=== PATIENT | female | born 1960 | race African-American/Black ===

== ENCOUNTER 2016-08-27 03:01 | Emergency (ER) | payer MEDICARE, MEDICAID ==
[~2016-08-27] VITALS: Ht 149.9 cm; Wt 127.0 kg
[2016-08-27 04:22] LABS: Urine Bilirubin Negative (Negative); Urine Blood Negative /uL (Negative); Urine Color Yellow (Yellow); Urine Glucose Normal (Normal); Urine Ketone Negative (Negative); Urine Mucus FEW (None Seen); Urine Nitrite Negative (Negative); Urine RBC 7 /hpf (0 - 4); Urine Squamous Epithelial Cell FEW /hpf (<5); Urine Urobilinogen Normal (Negative); Urine pH 5.5 (5.0-8.0)
[2016-08-27 04:43] LABS: Basophils # (auto) 0 uL; Basophils % (auto) 0.2 % (0.0-2.0); CONDITION Y; Eosinophils # (auto) 0.1 uL; Eosinophils % (auto) 0.9 % (0.0-7.0); Hematocrit 38.2 % (36.0-46.0); Hemoglobin 12.5 g/dL (12.2-16.2); Lymphocytes # (auto) 1.2 uL; Lymphocytes % (auto) 14.1 % (10.0-50.0); Mean Corpuscular Hemoglobin 27.3 pg (28.0-32.0); Mean Corpuscular Hgb Conc. 32.7 g/dL (32.0-36.0); Mean Corpuscular Volume 83.7 fL (80.0-100.0); Mean Platelet Volume 8.5 fL (7.4-10.4); Monocytes # (auto) 0.7 uL; Neutrophils # (auto) 6.7 uL; Neutrophils % (auto) 76.8 % (37.0-80.0); Platelet Count (auto) 297 10^3/uL (140-450); Red Cell Distribution Width 18.5 % (11.6-16.0); White Blood Cell 8.7 10^3/uL (4.4-10.8)
[2016-08-27 04:59] LABS: Chloride 107 mmol/L (98-107); Potassium 4.1 mmol/L (3.5-5.1); Sodium 142 mmol/L (136-145)
[2016-08-27 05:03] LABS: Albumin 3.3 g/dL (3.4-5.0); Amylase 54 U/L (25-115); Anion Gap 8 (5-15); Aspartate Aminotransferase 12 U/L (15-37); BUN/Creatinine Ratio 18.2; Blood Urea Nitrogen 14 mg/dL (7-18); Calcium 8.3 mg/dL (8.5-10.1); Carbon Dioxide 27 mmol/L (21-32); GFR African American 100 mL/min; GFR Non-African American 83 mL/min; Glucose 93 mg/dL (74-106); Magnesium 2.4 mg/dL (1.6-2.6)
[2016-08-27 05:08] LABS: Alkaline Phosphatase 90 U/L (45-117); Bilirubin, Total 0.2 mg/dL (0.2-1.0); Total Protein 7.6 g/dL (6.4-8.2)
[2016-08-27] MEDS ORDERED: cefTRIAXone 1GM/50ML D5W 50 ML IV ONE (07:15)
[2016-08-27] MEDS ORDERED: KETOROLAC TROMETH 30 MG/ML 1ML VIAL IV ONE (07:15)
[2016-08-27] MEDS ORDERED: SODIUM CHLORIDE 0.9% 1,000 ML IV ONE (07:15)
[2016-08-27 09:01] VITALS: BP 154/85
== END 2016-08-27 10:02 | disposition home or self-care (01) ==
LOC: ER 03:16
DX: N39.0 Urinary tract infection, site not specified (principal); D25.9 Leiomyoma of uterus, unspecified; J44.9 Chronic obstructive pulmonary disease, unspecified; R31.9 Hematuria, unspecified; Z90.49 Acquired absence of other specified parts of digestive tract
CPT/HCPCS: 36415; 74176; 80053; 81001; 82150; 83690; 83735; 84484; 84702; 85025; 96365; 96375; 99285; J0696; J1885

== ENCOUNTER → 2018-05-22 | Outpatient (CLI) | payer MEDICAID, MEDICARE ==
[~2018-05-22] MED LIST: ALBUTEROL SULF 2.5 MG/0.5ML(0.5%) NEB SOLN ONE
== END | disposition home or self-care (01) ==
LOC: RT 08:36
PROVIDERS: ATTEND Internal Medicine Pulmonary Disease
DX: J45.909 Unspecified asthma, uncomplicated (principal); J44.9 Chronic obstructive pulmonary disease, unspecified
CPT/HCPCS: 94060; J7611

== ENCOUNTER 2019-09-06 10:52 | Emergency (ER) | payer SELFPAY ==
[~2019-09-06] VITALS: Ht 152.4 cm; Wt 136.1 kg
[2019-09-06 12:27] LABS: Urine Bacteria FEW /hpf (None Seen); Urine Blood Negative /uL (Negative); Urine Mucus FEW (None Seen); Urine WBC 14 /hpf (0 - 5)
[2019-09-06 13:20] LABS: Basophils # (auto) 0 10 ^3/uL (0-0.2); Basophils % (auto) 0.5 % (0.0-2.0); Eosinophils # (auto) 0.1 10 ^3/uL (0-0.8); Eosinophils % (auto) 1.2 % (0.0-7.0); Hematocrit 42.2 % (36.0-46.0); Hemoglobin 13.7 g/dL (12.2-16.2); Lymphocytes # (auto) 1.2 10 ^3/uL (0.4-5.4); Lymphocytes % (auto) 17.7 % (10.0-50.0); Mean Corpuscular Hemoglobin 28.5 pg (28.0-32.0); Mean Corpuscular Hgb Conc. 32.6 g/dL (32.0-36.0); Mean Corpuscular Volume 87.6 fL (80.0-100.0); Monocytes # (auto) 0.5 10 ^3/uL (0-1.3); Monocytes % (auto) 7.9 % (0.0-12.0); Neutrophils # (auto) 4.9 10 ^3/uL (1.6-8.6); Neutrophils % (auto) 72.7 % (37.0-80.0); Nucleated Red Blood Cells % 0.1 %; Platelet Count (auto) 225 10^3/uL (140-450); Red Blood Cells 4.82 10^6/uL (4.0-5.20); Red Cell Distribution Width 15.5 % (11.8-14.3); White Blood Cell 6.8 10^3/uL (4.4-10.8)
[2019-09-06 13:45] LABS: Albumin 3.3 g/dL (3.4-5.0); BUN/Creatinine Ratio 13.9; Bilirubin, Total 0.3 mg/dL (0.2-1.0); Calcium 8.9 mg/dL (8.5-10.1); Total Protein 7.7 g/dL (6.4-8.2)
[2019-09-06 14:17] VITALS: BP 163/84
== END 2019-09-06 14:21 | disposition home or self-care (01) ==
LOC: ER 10:52
DX: N39.0 Urinary tract infection, site not specified (principal); K29.00 Acute gastritis without bleeding; Z87.891 Personal history of nicotine dependence
CPT/HCPCS: 36415; 76705; 80053; 81001; 83690; 83735; 85025

== ENCOUNTER 2020-02-02 17:10 | Emergency (ER) | payer SELFPAY ==
[~2020-02-02] VITALS: Ht 149.9 cm; Wt 131.5 kg
[2020-02-02 17:34] VITALS: BP 138/78
== END 2020-02-02 21:40 | disposition home or self-care (01) ==
LOC: ER 17:10
DX: U07.1 COVID-19 (principal); J45.21 Mild intermittent asthma with (acute) exacerbation
CPT/HCPCS: 36415; 71045; 87426

== ENCOUNTER 2023-11-13 23:48 | Emergency (ER) | payer MEDICAID, OTHER ==
[~2023-11-13] VITALS: Ht 149.9 cm; Wt 133.1 kg
[2023-11-14 00:26] VITALS: TEMP 98
[2023-11-14 04:01] VITALS: BP 138/87; PULSE 78; RESP 20; O2SAT 98
== END 2023-11-14 03:58 | disposition home or self-care (01) ==
LOC: ER 23:48
DX: H11.32 Conjunctival hemorrhage, left eye (principal); J44.9 Chronic obstructive pulmonary disease, unspecified; F17.210 Nicotine dependence, cigarettes, uncomplicated; E66.01 Morbid (severe) obesity due to excess calories; Z68.43 Body mass index [BMI] 50.0-59.9, adult; Z90.89 Acquired absence of other organs; Z98.890 Other specified postprocedural states

== ENCOUNTER 2024-05-12 18:04 | Inpatient (IN) | payer MEDICARE, MEDICAID ==
[~2024-05-12] VITALS: Ht 149.9 cm; Wt 128.0 kg
--- NOTE | 2024-05-12 18:17 | ECG ---
[facility] Test Date: 2024-05-12 Test Time: 18:06:49 Pat Name: ROS FLANAGAN Department: ED Room: 0206 Gender: F Camp Coordinator: georgina : 1960 Requested By: EBONIE LAMA Order Number: [id number] Reading MD: Clem Aviles Measurements Intervals [place] Rate: 85 P: 39 [place]: 178 QRS: 56 QRSD: 95 T: 29 QT: 359 QTc: 427 Interpretive Statements Sinus rhythm Electronically Signed On 05-14-2024 22:10:20 PDT by Clem Aviles Please click the below link to view image of tracing.
--- NOTE | 2024-05-12 19:10 | ED.PDOC ---
History of Present Illness HPI Comments 64 y/o morbidly obese F, with a Hx of asthma, COPD, and HTN, is BIBA for c/o shortness of breath, today. Per EMS report, patient reports sudden onset of difficulty breathing after ambulating outside of [facility] at 1515 after being seen for a persisting cough and flu-like symptoms that has been ongoing for a few days prior. Staff at said facility proceeded to give the patient 2.5mg of Albuterol, improving the patient's initial endorsed SpO2 in the high 80's to the mid-90's range. Upon arrival on scene, patient was noted by EMS to have been found with diminished breathe sounds in her right lung. En route, patient received an additional 2.5mg Albuterol and Atrovent, with improvement. Upon arrival to ED, patient states on feeling better and denies having any symptoms at this time. Chief Complaint: Shortness of Breath Time Seen by MD: 18:30 Primary Care Provider: UNKNOWN Reviewed Notes: Nurses Notes, Academic Program Specialist Notes, Medications, Allergies Allergies: Coded Allergies: Aspirin (Verified Allergy, Severe, 05/12/24) Information Source: Patient, Emergency Med Personnel Mode of Arrival: EMS Past Medical History PAST MEDICAL HISTORY: Asthma, COPD, HTN Past Medical History (Other): morbid obesity Surgical History: , Tonsillectomy AIR ANALYSIS TECHNICIAN History: No Pertinent AIR ANALYSIS TECHNICIAN History Family History Family History: Unknown Social History Smoker: Quit Greater Than 1 Year, Cigarettes Alcohol: Rarely Drugs: Denies Drug Use Lives In: Home All Other Systems: Reviewed and Negative (Comprehensive systems review obtained and negative except for what is stated in the HPI.) Physical Exam General Appearance: No Apparent Distress, Obese HEENT: Normal ENT Inspection, Pharynx Normal, TMs Normal Neck: Full Range of Motion, Non-Tender, Normal, Normal Inspection Respiratory: Chest Non-Tender, No Accessory Muscle Use, No Respiratory Distress, Rhonchi (rigth lung field ), Other (coarse breath sounds ) Cardiovascular: No Edema, No JVD, No Murmur, No Gallop, Normal Peripheral Pulses, Regular Rate/Rhythm Breast Exam: Deferred Gastrointestinal: No Organomegaly, Non Tender, No Pulsatile Mass, Normal Bowel Sounds, Soft Genitalia: Deferred Pelvic: Deferred Rectal: Deferred Extremities: No calf tenderness, Normal capillary refill, Normal inspection, Normal range of motion, Non-tender, No pedal edema Musculoskeletal : Apperance: Normal Neurologic: Alert, supervisor pre wave II-XII nml as Tested, No Motor Deficits, Normal Affect, Normal Mood, No Sensory Deficits Cerebellar Function: Normal Reflexes: Normal Skin: Dry, Normal Color, Warm Lymphatic: No Adenopathy Was a procedure done? Was a procedure done?: No EKG EKG : Pulse Rate (adult): 85 [place]wey: Normal Cardiac Rhythm: NSR Block: None Hypertrophy: None ST: Normal Differential Dx Considerations may include: asthma exacerbation, URI, viral syndrome, chf, angina equivalent, ptx, lung mass, anxiety, reactive airway disease X-Ray, Labs, Meds, VS Vital Signs Date Time Temp Pulse Resp B/P (MAP) Pulse Ox O2 Delivery O2 Flow Rate FiO2 05/12/24 20:00 87 05/12/24 19:51 98.3 88 14 142/69 (93) 98 98.3 05/12/24 19:51 88 14 98 Room Air* 0 21 05/12/24 19:10 85 05/12/24 18:37 Room Air* 0 21 05/12/24 18:37 98.4 89 19 127/54 (78) 95 98.4 05/12/24 18:30 90 05/12/24 18:08 99.3 96 22 106/93 (97) 96 99.3 Lab Test 05/12/24 20:13 Range/Units White Blood Count 9.7 4.4-10.8 10^3/uL Red Blood Count 4.75 4.0-5.20 10^6/uL Hemoglobin 14.1 12.2-16.2 g/dL Hematocrit 41.6 36.0-46.0 % Mean Corpuscular Volume 87.5 80.0-100.0 fL Mean Corpuscular Hemoglobin 29.7 28.0-32.0 pg Mean Corpuscular Hemoglobin Concent 33.9 32.0-36.0 g/dL Red Cell Distribution Width 15.5 H 11.8-14.3 % Platelet Count 212 140-450 10^3/uL Mean Platelet Volume 8.5 6.9-10.8 fL Neutrophils (%) (Auto) 83.8 H 37.0-80.0 % Lymphocytes (%) (Auto) 5.3 L 10.0-50.0 % Monocytes (%) (Auto) 10.0 0.0-12.0 % Eosinophils (%) (Auto) 0.1 0.0-7.0 % Basophils (%) (Auto) 0.8 0.0-2.0 % Neutrophils # (Auto) 8.2 1.6-8.6 10 ^3/uL Lymphocytes # (Auto) 0.5 0.4-5.4 10 ^3/uL Monocytes # (Auto) 1.0 0-1.3 10 ^3/uL Eosinophils # (Auto) 0 0-0.8 10 ^3/uL Basophils # (Auto) 0.1 0-0.2 10 ^3/uL Nucleated Red Blood Cells 0.0 % Sodium Level 136 136-145 mmol/L Potassium Level 4.2 3.5-5.1 mmol/L Chloride Level 104 98-107 mmol/L Carbon Dioxide Level 26 20-31 mmol/L Anion Gap 6 5-15 Blood Urea Nitrogen 10 9-23 mg/dL Creatinine 1.19 H 0.550-1.02 mg/dL Glomerular Filtration Rate Calc 52 >90 mL/min BUN/Creatinine Ratio 8.4 L 10.0-20.0 Serum Glucose 114 H 74-106 mg/dL Calcium Level 9.4 8.7-10.4 mg/dL Troponin I High Sensitivity 5 </=34 ng/L B-Type Natriuretic Peptide 25.50 0-100 pg/mL [place] [id number] Ph: [phone] DIAGNOSTIC IMAGING Diagnostic Imaging Report : [id number] Signed PATIENT: ROS FLANAGAN ACCT: [id number] UNIT: [id number] : 1960 LOC: ER ROOM / BED: / AGE / SEX: 64 / F ADM STATUS: REG ER SERVICE 31 ORDERING PHYSICIAN: EBONIE LAMA MD PROCEDURE(s): CXRP - CHEST PORTABLE REASON: sob ORDER NUMBER(s): [id number], ACCESSION NUMBER(s): [id number] CHEST RADIOGRAPH Indication: sob Technique: Single frontal view of the chest was obtained Comparison: CHEST XRAY 1 VIEW on DOS: 02/02/20 FINDINGS: Lines and Tubes: None Lungs: Ill-defined bilateral pulmonary infiltrates. Pleura: No effusion. No pneumothorax. Cardiomediastinal contours: Mildly enlarged Bones: No acute osseous abnormality. IMPRESSION: 1. Findings may represent congestive failure or pneumonia. Airspace disease appears worse in the lung bases. This may be partially due to patient's soft tissues over the area. 2. ATED BY: LINDSAY CALDERON Jr., DO DICTATED DATE/TIME: 05/12/241932 SIGNED BY: LINDSAY CALDERON Jr., SIGNED DATE/TIME: 05/12/241932 CC: denies any labs to be done but agrees to receive an x-ray Time of 1ST Reevaluation: 19:00 Reevaluation 1ST: Unchanged Time of 2ND Reevaluation: 21:06 Reevaluation 2ND: Improved Patient Education/Counseling: Diagnosis, Treatment Family Education/Counseling: No Family Present Additional Information Previous medical encounters reviewed: November 13, 2023 encounter for subconjunctival hemorrhage The following tests were ordered, and results were reviewed by me: CXR, EKG Additional Information was gathered from interviewing the following independent historians: EMS I reviewed and agreed with the following test results read by other providers: CXR I discussed treatment and results with medical personnel and: Patient pt was tachycardic, tachpneic on arrival. she was sent from by EMT for concerns of impending respiratory failure. she is much improved. the workup shows she has new onset chf. she will be admitted for further evaluation and treatments Departure 1 Departure Time of Disposition: 21:05 Impression: Primary Impression: CHF (congestive heart failure) Qualified Codes: I50.21 - Acute systolic (congestive) heart failure Additional Impression: Dyspnea Qualified Codes: R06.00 - Dyspnea, unspecified Disposition: ADMITTED INPATIENT Admit to: Tele Condition: Serious Critical Care Note Critical Care Time?: Yes (55 min-critical care time only) Critical care comment: Due to concerns for patients condition deteriorating, the care required my highest level of attention and readiness to intervene. I assessed the patient, reviewed the medical records, ordered the appropriate tests and treatments, then reassessed for results and responsiveness. I communicated with medical personnel and consultants and formulated a plan of care. Total critical care time excludes any procedures Stability Stability form required: No Heart Score Heart Score: Heart Score Response (Comments) Value History Slightly Suspicious 0 EKG Normal 0 Age >65 2 Risk Factors 1 or 2 risk factors 1 Troponin Normal limit 0 Total 3 I personally scribed for EBONIE LAMA MD ([email or web address]) on 05/12/24 at 19:10. Electronically submitted by Espinoza Martin ([email or web address]). I personally scribed for EBONIE LAMA MD ([email or web address]) on 05/12/24 at 19:51. Electronically submitted by Espinoza Martin ([email or web address]). EBONIE LAMA MD May 12, 2024 19:10
--- NOTE | 2024-05-12 19:35 | DVH ---
CHEST RADIOGRAPH Indication: sob Technique: Single frontal view of the chest was obtained Comparison: CHEST XRAY 1 VIEW on DOS: 02/02/20 FINDINGS: Lines and Tubes: None Lungs: Ill-defined bilateral pulmonary infiltrates. Pleura: No effusion. No pneumothorax. Cardiomediastinal contours: Mildly enlarged Bones: No acute osseous abnormality. IMPRESSION: 1. Findings may represent congestive failure or pneumonia. Airspace disease appears worse in the lung bases. This may be partially due to patient's soft tissues over the area. 2.
[2024-05-12 19:51] VITALS: PULSE 88; RESP 14; O2SAT 98
[2024-05-12 20:27] LABS: Basophils # (auto) 0.1 10 ^3/uL (0-0.2); Basophils % (auto) 0.8 % (0.0-2.0); Eosinophils # (auto) 0 10 ^3/uL (0-0.8); Eosinophils % (auto) 0.1 % (0.0-7.0); Hematocrit 41.6 % (36.0-46.0); Hemoglobin 14.1 g/dL (12.2-16.2); Lymphocytes # (auto) 0.5 10 ^3/uL (0.4-5.4); Lymphocytes % (auto) 5.3 % (10.0-50.0); Mean Corpuscular Hemoglobin 29.7 pg (28.0-32.0); Mean Corpuscular Hgb Conc. 33.9 g/dL (32.0-36.0); Mean Corpuscular Volume 87.5 fL (80.0-100.0); Neutrophils # (auto) 8.2 10 ^3/uL (1.6-8.6); Neutrophils % (auto) 83.8 % (37.0-80.0); Platelet Count (auto) 212 10^3/uL (140-450); Red Blood Cells 4.75 10^6/uL (4.0-5.20); Red Cell Distribution Width 15.5 % (11.8-14.3); White Blood Cell 9.7 10^3/uL (4.4-10.8)
[2024-05-12 20:37] LABS: Chloride 104 mmol/L (98-107); Potassium 4.2 mmol/L (3.5-5.1); Sodium 136 mmol/L (136-145)
[2024-05-12 20:38] LABS: Anion Gap 6 (5-15); Calcium 9.4 mg/dL (8.7-10.4); Carbon Dioxide 26 mmol/L (20-31)
[2024-05-12 20:43] LABS: BUN/Creatinine Ratio 8.4 (10.0-20.0); Blood Urea Nitrogen 10 mg/dL (9-23)
[2024-05-12 20:52] LABS: Glucose 114 mg/dL (74-106)
[2024-05-12] MEDS: FUROSEMIDE 100 MG/10ML VIAL IV ONE (21:40)
[2024-05-12] MEDS: NITROGLYCERIN 2% OINT 1GM PKG TD ONE (21:42)
[2024-05-12] MEDS: ASPirin 325 MG TAB PO ONE (21:50)
[2024-05-12 22:03] LABS: Rapid Influenza A Negative (Negative); Rapid Influenza B Negative (Negative)
[2024-05-12 22:09] LABS: COVID19 ANTIGEN SOFIA FIA POSITIVE (NEGATIVE)
[2024-05-12 22:37] LABS: Urine Bacteria None Seen /hpf (None Seen)
[2024-05-12 22:44] LABS: Urine Blood Negative /uL (Negative); Urine Clarity Clear (Clear); Urine Color Light-Yellow (Yellow); Urine Protein, UAD Negative (Negative); Urine Specific Gravity 1.007 (1.001-1.035); Urine Squamous Epithelial Cell None Seen /hpf (<5); Urine Urobilinogen Normal (Negative); Urine WBC < 1 /HPF (0-5)
[2024-05-12 23:15] VITALS: PULSE 99; RESP 19; O2SAT 94
[2024-05-12] MEDS ORDERED: ONDANSETRON HCL 4 MG/2 ML VIAL IV PRN (23:45)
[2024-05-12] MEDS: FUROSEMIDE 20 MG/2 ML VIAL IV ONE (23:45)
[2024-05-12] MEDS ORDERED: ACETAMINOPHEN 325 MG TAB PO PRN (23:45)
--- NOTE | 2024-05-12 23:49 | DVHHPRES ---
History of Present Illness Resident Creating Document: ELÍAS ROCA RESIDENT Reason for Visit: shortness of breath, covid positive History of Present Illness Patient is a 64 year old female a past medical history o f HTN, COPD and Asthma was brought in via the ambulance due shortness of breath. Patient tells me that she was brought here because of her breathing. For the past few days, she has been experiences persistent cough and flu-like symptoms. She reported to [facility]. Her Spo2 was in the 80-90s with diminished breath sounds. She received 2.5 mg albuterol twice and Atrovent giving her some relief. Upon arrival to ED, patient states on feeling better. She denied chest pain, fever, nausea, diaphoresis, hemoptysis, weight changes, pedal edema or start of a new medication. Pmhx: HTN, COPD and Asthma Pshx: polypectomy ( Nasal), , Tonsillectomy Family history: Unknown Social history: Smokes cigarettes, but quiet over 1 year Past Medical History See HPI Family History See HPI Review of Systems Review of Systems Constitutional: Denies fever no chills no feeling of malaise HEENT: Denies headache, ear pain, ear discharges, conjunctivitis, nasal discharge throat pain Cardiovascular: Denies chest pain, palpitation, orthopnea, PND, or pedal edema Respiratory: Denies shortness of breath, sputum production, hemoptysis;Persist cough GI: Denies abdominal pain, nausea, vomiting, diarrhea, hematemesis, hematochezia, : Denies frequency, urgency, hematuria, Endocrine: Denies unintentional weight gain or weight loss, feeling of hot flashes, Artis: Denies easy bruising, bleeding disorders, epistaxis Musculoskeletal: Denies joint pains, muscle aches Psych: No evidence of depression, morales, suicidal ideation Allergies: Coded Allergies: Aspirin (Verified Allergy, Severe, 05/12/24) Exam Vital Signs Vital Signs Date Time Temp Pulse Resp B/P (MAP) Pulse Ox O2 Delivery O2 Flow Rate FiO2 05/12/24 23:15 98.3 99 19 150/71 (97) 94 98.3 05/12/24 23:15 Room Air* 0 21 Exam General Appearance: Alert, Oriented X3, Cooperative, No acute distress, Grade III obesity HEENT: Atraumatic, PERRLA, EOMI, Mucous membrane moist/pink Respiratory: Mildly diminished air entry bilateral Cardiovascular: Regular rate, Normal S1, Normal S2, No murmurs, no chest wall tenderness Abdominal: Enlarge abdomen ( Obese) , no tenderness, bowel sounds present, no scars noted Extremities: No clubbing, No cyanosis, No edema, Normal pulses, No tenderness/swelling Skin: No rashes, No breakdown, No significant lesion Neuro: Normal gait, Normal speech, Strength at 5/5 X4 ext, Normal tone, Sensation intact, Cranial nerves 3-12 NL, Reflexes 2+ Psych/Mental Status: Mental status NL, Mood NL Labs/Xrays Labs Test 05/12/24 22:59 05/12/24 22:31 05/12/24 21:00 05/12/24 20:13 Range/Units Troponin I High Sensitivity 5 </=34 ng/L Urine Color Light-yellow Yellow Urine Clarity Clear Clear Urine pH 6.0 5.0-9.0 Urine Specific [place] 1.007 1.001-1.035 Urine Protein Negative Negative Urine Ketones Negative Negative Urine Blood Negative Negative /uL Urine Nitrite Negative Negative Urine Bilirubin Negative Negative Urine Urobilinogen Normal Negative mg/dL Urine Leukocyte Esterase Negative Negative /uL Urine RBC <1 0 - 4 /hpf Urine Microscopic WBC < 1 0-5 /HPF Urine Squamous Epithelial Cells None seen <5 /hpf Urine Bacteria None seen None Seen /hpf Urine Glucose Normal Normal mg/dL Influenza Type A Antigen Negative Negative Influenza Type B Antigen Negative Negative SARS-CoV-2 Antigen (Rapid) Positive NEGATIVE White Blood Count 9.7 4.4-10.8 10^3/uL Red Blood Count 4.75 4.0-5.20 10^6/uL Hemoglobin 14.1 12.2-16.2 g/dL Hematocrit 41.6 36.0-46.0 % Mean Corpuscular Volume 87.5 80.0-100.0 fL Mean Corpuscular Hemoglobin 29.7 28.0-32.0 pg Mean Corpuscular Hemoglobin Concent 33.9 32.0-36.0 g/dL Red Cell Distribution Width 15.5 H 11.8-14.3 % Platelet Count 212 140-450 10^3/uL Mean Platelet Volume 8.5 6.9-10.8 fL Neutrophils (%) (Auto) 83.8 H 37.0-80.0 % Lymphocytes (%) (Auto) 5.3 L 10.0-50.0 % Monocytes (%) (Auto) 10.0 0.0-12.0 % Eosinophils (%) (Auto) 0.1 0.0-7.0 % Basophils (%) (Auto) 0.8 0.0-2.0 % Neutrophils # (Auto) 8.2 1.6-8.6 10 ^3/uL Lymphocytes # (Auto) 0.5 0.4-5.4 10 ^3/uL Monocytes # (Auto) 1.0 0-1.3 10 ^3/uL Eosinophils # (Auto) 0 0-0.8 10 ^3/uL Basophils # (Auto) 0.1 0-0.2 10 ^3/uL Nucleated Red Blood Cells 0.0 % Sodium Level 136 136-145 mmol/L Potassium Level 4.2 3.5-5.1 mmol/L Chloride Level 104 98-107 mmol/L Carbon Dioxide Level 26 20-31 mmol/L Anion Gap 6 5-15 Blood Urea Nitrogen 10 9-23 mg/dL Creatinine 1.19 H 0.550-1.02 mg/dL Glomerular Filtration Rate Calc 52 >90 mL/min BUN/Creatinine Ratio 8.4 L 10.0-20.0 Serum Glucose 114 H 74-106 mg/dL Calcium Level 9.4 8.7-10.4 mg/dL B-Type Natriuretic Peptide 25.50 0-100 pg/mL Assessment/Plan Assessment/Plan Assessment COVID pneumonia, Covid test positive Possible COPD exacerbation Asthma Obesity grade III, BMI : 57.0 Shortness of breaths rule out CHF lymphopenia Plan Patient is on room air, no evidence of respiratory distress. Therefore we do symptomatic management at this time Breathing treatment ( albuterol plus ipratropium) p.r.n. Pending ECHO, lipid panel report Pending D- dimer to rule out Covid induced hypercoagulable state Goal of care discussed for more than 20 minutes: Full code Case and plan discussed with Dr. Marvin Plan discussed with: Patient Date of Service: May 12, 2024 Billing Provider: CARMINA MARVIN MD Common Visit Codes: [id number] INP/OBS CARE (HIGH) ELÍAS ROCA RESIDENT May 12, 2024 23:49 CARMINA MARVIN MD May 13, 2024 11:01
[2024-05-13] VITALS (9 sets, daily range): BP systolic 122–156; BP diastolic 65–85; PULSE 64–96; RESP 15–19; TEMP 36.6; O2SAT 94–100
[2024-05-13 00:46] LABS: INR 1.05 (0.9-1.15); Partial Thromboplastin Time 29.9 SEC (24.5-34.5); Prothrombin Time 11.1 sec (9.3-11.8)
[2024-05-13] MEDS ORDERED: ALBUTEROL SULF 2.5 MG/0.5ML(0.5%) NEB SOLN NEB PRN (01:00)
[2024-05-13] MEDS: guaiFENesin-DM 100/10mg/5ml SYR PO ONE (01:13)
[2024-05-13 01:25] LABS: Triglycerides 70 mg/dL (< 150)
[2024-05-13 01:26] LABS: LDL Cholesterol 91 mg/dL (< 100)
[2024-05-13 01:27] LABS: Cholesterol 167 mg/dL (< 200)
[2024-05-13 01:31] LABS: HDL Cholesterol 61 mg/dL (40-59)
[2024-05-13] MEDS: guaiFENesin-DM 100/10mg/5ml SYR PO PRN (05:28)
[2024-05-13 07:19] LABS: Basophils # (auto) 0 10 ^3/uL (0-0.2); Basophils % (auto) 0.5 % (0.0-2.0); Eosinophils # (auto) 0.1 10 ^3/uL (0-0.8); Eosinophils % (auto) 0.7 % (0.0-7.0); Hemoglobin 13.6 g/dL (12.2-16.2); Lymphocytes # (auto) 1.2 10 ^3/uL (0.4-5.4); Lymphocytes % (auto) 15.8 % (10.0-50.0); Mean Corpuscular Hemoglobin 28.8 pg (28.0-32.0); Mean Corpuscular Hgb Conc. 33.1 g/dL (32.0-36.0); Mean Corpuscular Volume 86.8 fL (80.0-100.0); Monocytes # (auto) 1.1 10 ^3/uL (0-1.3); Monocytes % (auto) 13.6 % (0.0-12.0); Neutrophils # (auto) 5.5 10 ^3/uL (1.6-8.6); Neutrophils % (auto) 69.4 % (37.0-80.0); Platelet Count (auto) 204 10^3/uL (140-450); Red Blood Cells 4.72 10^6/uL (4.0-5.20); Red Cell Distribution Width 15.8 % (11.8-14.3); White Blood Cell 7.9 10^3/uL (4.4-10.8)
[2024-05-13 07:32] LABS: Calcium 9.2 mg/dL (8.7-10.4); Chloride 102 mmol/L (98-107); Potassium 3.6 mmol/L (3.5-5.1); Sodium 138 mmol/L (136-145)
[2024-05-13 07:33] LABS: Anion Gap 10 (5-15); Carbon Dioxide 26 mmol/L (20-31)
[2024-05-13] MEDS: IPRATROPIUM BROM 0.5 MG/2.5ML INH SOL NEB SCH (07:34)
[2024-05-13 07:38] LABS: BUN/Creatinine Ratio 13.1 (10.0-20.0); Blood Urea Nitrogen 16 mg/dL (9-23)
[2024-05-13 07:39] LABS: Magnesium 2.2 mg/dL (1.6-2.6)
[2024-05-13 07:44] LABS: Glucose 106 mg/dL (74-106)
[2024-05-13] MEDS: PANTOPRAZOLE 40 MG/10 ML VIAL INJ IV SCH (10:13)
[2024-05-13] MEDS: methylPREDNISolone SOD SUCC 40 MG/ML VL IV SCH (10:14)
[2024-05-13] MEDS: ENOXAPARIN SOD 40 MG/0.4 ML SYRINGE SC SCH (10:14)
[2024-05-13] MEDS ORDERED: AMOX500C2 PO (10:54)
[2024-05-13] MEDS ORDERED: METH4PAK PO (13:22)
[2024-05-13] MEDS ORDERED: ACET1CAP14 PO (13:22)
[2024-05-13] MEDS ORDERED: DEXT1SYP9 PO (13:22)
--- NOTE | 2024-05-13 13:24 | DVHDSRES ---
Discharge Summary Date of Admission Resident Creating Document: REMA ROBLES RESIDENT May 12, 2024 at 23:35 Date of Discharge: May 13, 2024 Admitting Diagnosis Respiratory infection with inflammation with multiple comorbidities (HTN and obese) Labs/Diagnostic Data: Laboratory Results Test 05/13/24 06:35 05/12/24 22:59 05/12/24 22:31 05/12/24 21:00 White Blood Count 7.9 10^3/uL (4.4-10.8) Red Blood Count 4.72 10^6/uL (4.0-5.20) Hemoglobin 13.6 g/dL (12.2-16.2) Hematocrit 41.0 % (36.0-46.0) Mean Corpuscular Volume 86.8 fL (80.0-100.0) Mean Corpuscular Hemoglobin 28.8 pg (28.0-32.0) Mean Corpuscular Hemoglobin Concent 33.1 g/dL (32.0-36.0) Red Cell Distribution Width 15.8 % (11.8-14.3) Platelet Count 204 10^3/uL (140-450) Mean Platelet Volume 8.6 fL (6.9-10.8) Neutrophils (%) (Auto) 69.4 % (37.0-80.0) Lymphocytes (%) (Auto) 15.8 % (10.0-50.0) Monocytes (%) (Auto) 13.6 % (0.0-12.0) Eosinophils (%) (Auto) 0.7 % (0.0-7.0) Basophils (%) (Auto) 0.5 % (0.0-2.0) Neutrophils # (Auto) 5.5 10 ^3/uL (1.6-8.6) Lymphocytes # (Auto) 1.2 10 ^3/uL (0.4-5.4) Monocytes # (Auto) 1.1 10 ^3/uL (0-1.3) Eosinophils # (Auto) 0.1 10 ^3/uL (0-0.8) Basophils # (Auto) 0 10 ^3/uL (0-0.2) Nucleated Red Blood Cells 0.0 % Sodium Level 138 mmol/L (136-145) Potassium Level 3.6 mmol/L (3.5-5.1) Chloride Level 102 mmol/L (98-107) Carbon Dioxide Level 26 mmol/L (20-31) Anion Gap 10 (5-15) Blood Urea Nitrogen 16 mg/dL (9-23) Creatinine 1.22 mg/dL (0.550-1.02) Glomerular Filtration Rate Calc 50 mL/min (>90) BUN/Creatinine Ratio 13.1 (10.0-20.0) Serum Glucose 106 mg/dL (74-106) Lactic Acid Level 0.9 mmol/L (0.4-2.0) Calcium Level 9.2 mg/dL (8.7-10.4) Magnesium Level 2.2 mg/dL (1.6-2.6) Troponin I High Sensitivity 5 ng/L (</=34) Triglycerides Level 70 mg/dL (< 150) Cholesterol Level 167 mg/dL (< 200) LDL Cholesterol 91 mg/dL (< 100) HDL Cholesterol 61 mg/dL (40-59) Thyroid Stimulating Hormone (TSH) 1.59 uIU/mL (0.55-4.78) Urine Color Light-yellow (Yellow) Urine Clarity Clear (Clear) Urine pH 6.0 (5.0-9.0) Urine Specific [place] 1.007 (1.001-1.035) Urine Protein Negative (Negative) Urine Ketones Negative (Negative) Urine Blood Negative /uL (Negative) Urine Nitrite Negative (Negative) Urine Bilirubin Negative (Negative) Urine Urobilinogen Normal mg/dL (Negative) Urine Leukocyte Esterase Negative /uL (Negative) Urine RBC <1 /hpf (0 - 4) Urine Microscopic WBC < 1 /HPF (0-5) Urine Squamous Epithelial Cells None seen /hpf (<5) Urine Bacteria None seen /hpf (None Seen) Urine Glucose Normal mg/dL (Normal) Influenza Type A Antigen Negative (Negative) Influenza Type B Antigen Negative (Negative) SARS-CoV-2 Antigen (Rapid) Positive (NEGATIVE) Test 05/12/24 20:13 Prothrombin Time 11.1 sec (9.3-11.8) Prothrombin Time INR 1.05 (0.9-1.15) Activated Partial Thromboplast Time 29.9 SEC (24.5-34.5) D-Dimer, Quantitative 0.43 mg/L FEU (0.0-0.49) Hemoglobin A1c 5.5 % A1C (<5.7) B-Type Natriuretic Peptide 25.50 pg/mL (0-100) Other Laboratory Tests 05/13/24 06:35 Brief Hx & Hospital Course: Patient is a 64 year old female a past medical history of HTN, COPD and Asthma was brought in via the ambulance due shortness of breath. . For the past few days, she has been experiences persistent cough and flu-like symptoms. She reported to [facility]. Her Spo2 was in the 80-90s with diminished breath sounds. She received 2.5 mg albuterol twice and Atrovent giving her some relief. Upon arrival to ED, patient states on feeling better. She denied chest pain, fever, nausea, diaphoresis, hemoptysis, weight changes, pedal edema or start of a new medication. Pmhx: HTN, COPD and Asthma Pshx: polypectomy ( Nasal), , Tonsillectomy Social history: Smokes cigarettes, but quiet over 1 year During her hospital course, patient was found with COVID infection and an episode of wheezing that improved with IV steroids. Also patient was found with ERIC vasomotor mediated that improved after IV bolus. Supportive measures and treatment was prescribed at discharge, patient is advised to stay in isolation at home due to recent infection General Appearance: Alert, Oriented X3, Cooperative, No acute distress, Grade III obesity HEENT: Atraumatic, PERRLA, EOMI, Mucous membrane moist/pink Respiratory: Mildly diminished air entry bilateral Cardiovascular: Regular rate, Normal S1, Normal S2, No murmurs, no chest wall tenderness Abdominal: Enlarge abdomen ( Obese) , no tenderness, bowel sounds present, no scars noted Extremities: No clubbing, No cyanosis, No edema, Normal pulses, No tenderness/swelling Skin: No rashes, No breakdown, No significant lesion Neuro: Normal gait, Normal speech, Strength at 5/5 X4 ext, Normal tone, Sensation intact, Cranial nerves 3-12 NL, Reflexes 2+ Psych/Mental Status: Mental status NL, Mood NL Case discussed with Dr Davis Operations or Procedures CHEST RADIOGRAPH Indication: sob Technique: Single frontal view of the chest was obtained Comparison: CHEST XRAY 1 VIEW on DOS: 02/02/20 FINDINGS: Lines and Tubes: None Lungs: Ill-defined bilateral pulmonary infiltrates. Pleura: No effusion. No pneumothorax. Cardiomediastinal contours: Mildly enlarged Bones: No acute osseous abnormality. IMPRESSION: 1. Findings may represent congestive failure or pneumonia. Airspace disease appears worse in the lung bases. This may be partially due to patient's soft tissues over the area. Condition at Discharge: Fair Final Diagnosis/Problems List Pneumonitis due to COVID infection Respiratory infection with inflammation with multiple comorbidities (HTN and obese) 4C Mortality score for COVID19: 9% Possible COPD and asthma exacerbation ERIC vasomotor mediated due to dehydration: improved H/ hypertension H/ obesity Discharge Disposition: Home Discharge Instruct/Medications Diet: Consistent carbohydrate, Cardiac 2g Na,low cholest Activity: No Restrictions, As Tolerated Follow Up/Referral: or clinic Medications: see prescription Discharge Statement: "Patient was advised to return to the ER or call 911 if any headaches, dizziness, shortness of breath, chest pain, abdominal pain, bleeding, fevers, or worsening of medical condition. Patient was counseled about treatment plan, medications, possible side effects, patientverbalized understanding. All questions were answered to the best of my ability. This discharge took greater then 30 minutes in planning, reviewing documentation, counseling the patient, and discussing with other team members." ASSESSMENT ASSESSMENT Assessment COVID infection REMA ROBLES RESIDENT May 13, 2024 13:24 GRANT DAVIS DO May 13, 2024 17:01
[2024-05-13] MEDS: SODIUM CHLORIDE 0.9% 500 ML IV ONE (13:31)
--- NOTE | 2024-05-15 17:15 | DVHSR ---
APPROVED REPORT EXAM: LIMITED Two-dimensional and M-mode echocardiogram with Doppler and color Doppler. Blood Pressure: 126/45 mmHg INDICATION SOB RISK FACTORS Obesity: Height: 4'11, Weight: 292 DIMENSIONS LVDd3.8 (3.8-5.7cm)LA (2D)3.5 (1.9-4.0cm)Aortic Root2.9 (2.0-3.7cm) LVDs2.6 (2.5-4.0cm)LA (MM) (1.9-4.0cm)Aortic Cusp Exc1.6 (1.5-2.0cm) EF (%) 60.0 (55-70%)Rt. Atrium3.1 (1.9-4.0cm)Asc. Aorta cm IVSd0.9 (0.7-1.1cm)RV (D) (1.8-2.4cm) PWd1.0 (0.7-1.1cm) Mitral Valve MitralMitral Stenosis E wave0.95m/sMV Mean GR.mmHg A wave1.14m/sMV Peak GR.mmHg E/A ratio0.82D MVAcm2 DECEL [id number] 1/2 Timems Aortic Valve Aortic ValveAortic Stenosis V11.15m/[place] Mean GR.mmHg V21.75m/[place] Peak GR.12mmHg LVOT Diameter2.0 (1.8-2.4cm)Doppler AVA2.06cm2 Tricuspid Valve TR Velocity2.48m/s [id number] Other Information Quality : Technically LimitedRhythm : Technically limited study due to body habitus.patient position. Conclusion Technically good study. Sinus rhythm. Mild concentric LVH. Mild dilation of the sinuses of Valsalva. Valves appear to be structurally normal. Left ventricular function is preserved at 60% with normal RV function. Mild tricuspid regurgitation. Trace aortic insufficiency. No pericardial effusion masses or vegetations discernible.
== END 2024-05-13 17:15 | disposition home or self-care (01) | DRG 177 ==
LOC: ER 18:04 → EDBD 18:04 → OVERFLOW 23:35 → CENTRAL 05-13 08:50
PROVIDERS: ADMIT Student in an Organized Health Care Education/Training Program; ATTEND Internal Medicine
DX: U07.1 COVID-19 (principal); J12.82 Pneumonia due to coronavirus disease 2019; N17.0 Acute kidney failure with tubular necrosis; Z68.43 Body mass index [BMI] 50.0-59.9, adult; J44.1 Chronic obstructive pulmonary disease with (acute) exacerbation; J45.901 Unspecified asthma with (acute) exacerbation; J44.0 Chronic obstructive pulmonary disease with (acute) lower respiratory infection; E86.0 Dehydration; E66.01 Morbid (severe) obesity due to excess calories; I10 Essential (primary) hypertension; D72.810 Lymphocytopenia; F17.210 Nicotine dependence, cigarettes, uncomplicated; Z88.6 Allergy status to analgesic agent; Z79.899 Other long term (current) drug therapy; Z98.891 History of uterine scar from previous surgery
CPT/HCPCS: 36415; 71045; 80048; 80061; 81001; 82565; 83036; 83605; 83735; 83880; 84443; 84484; 85025; 85379; 85610; 85730; 87081; 87426; 87804; 93005; 93306; 94640; 96374; 99291; G0378; J2470